=== PATIENT | male | born 1995 | race Caucasian/White ===

== ENCOUNTER 2019-09-28 22:00 | Emergency (ER) | payer BC ==
[2019-09-28 22:15] VITALS: BP 157/104; PULSE 85
--- NOTE | 2019-09-28 23:37 | EDM.PDOC ---
ED HPI GENERAL MEDICAL PROBLEM - General Chief Complaint: Genitourinary Problem Stated Complaint: blood in urine recent heart surgery Time Seen by Provider: 09/28/19 23:31 - History of Present Illness INITIAL COMMENTS - FREE TEXT/NARRATIVE: 24-year-old male presents the emergency room with blood in his urine Patient had 2 episodes of this prior to coming in this evening. He denies any pain frequency or urgency with urination. The patient thinks he is taking an aspirin a day but is not sure of the strength he just says is a regular aspirin. The patient recently had what sounds like a cardioversion done in [place] but he cannot recall the context of this or any details. - Related Data Allergies Allergy/AdvReac Type Severity Reaction Status Date / Time hydrocodone Allergy Rash Verified 05/11/19 16:45 CDT reyes water Allergy Swollen Uncoded 05/11/19 16:45 CDT Eyes Past Medical History - Past Health History Medical/Surgical History: Denies Medical/Surgical History HEENT History: Reports: None Cardiovascular History: Reports: Arrhythmia Respiratory History: Reports: None Gastrointestinal History: Reports: None Genitourinary History: Reports: None Musculoskeletal History: Reports: None Neurological History: Reports: Other (See Below) Other Neuro History: subdural hematoma 05/07/19 Psychiatric History: Reports: None Endocrine/Metabolic History: Reports: None Hematologic History: Reports: None Immunologic History: Reports: None Oncologic (Cancer) History: Reports: None Dermatologic History: Reports: None - Infectious Disease History Infectious Disease History: Reports: None - Past Surgical History Head Surgeries/Procedures: Reports: None Musculoskeletal Surgical History: Reports: Other (See Below) Other Musculoskeletal Surgeries/Procedures:: jaw surgery Social & Family History - Family History Family Medical History: Noncontributory - Tobacco Use Smoking Status *Q: Current Some Day Smoker Years of Tobacco use: 10 Packs/Tins Daily: 1 - Caffeine Use Caffeine Use: Reports: Coffee, Energy Drinks, Soda - Recreational Drug Use Recreational Drug Use: No - Living Situation & Occupation Living situation: Reports: with Family ED ROS GENERAL - Review of Systems Review Of Systems: See Below Constitutional: Reports: No Symptoms Respiratory: Reports: No Symptoms Cardiovascular: Reports: No Symptoms GI/Abdominal: Denies: Abdominal Pain, Constipation, Diarrhea, Nausea, Vomiting : Reports: Hematuria. Denies: Discharge, Dysuria, Flank Pain, Frequency ED EXAM, GI/ABD - Physical Exam Exam: See Below Exam Limited By: No Limitations General Appearance: Alert, No Apparent Distress Respiratory/Chest: No Respiratory Distress, Lungs Clear, Normal Breath Sounds Cardiovascular: Regular Rate, Rhythm, No Edema, No Murmur GI/Abdominal Exam: Normal Bowel Sounds, Soft, Non-Tender Back Exam: Normal Inspection. No: CVA Tenderness (L), CVA Tenderness (R) Course - Vital Signs Last Recorded V/S: Last Vital Signs Temp 37.4 C 09/28/19 22:11 Pulse 85 09/28/19 22:11 Resp 16 09/28/19 22:11 BP 157/104 H 09/28/19 22:11 Pulse Ox 98 09/28/19 22:11 - Re-Assessments/Exams Free Text/Narrative Re-Assessment/Exam: 09/29/19 07:40 While trying to obtain his old records from [place] the patient left the department he was ready to go home Departure - Departure Time of Disposition: 00:55 Disposition: Eloped 07 Clinical Impression: Hematuria - Discharge Information Referrals: PCP,None [Primary Care Provider] - Forms: ED Department Discharge Sepsis Event Note - Evaluation Sepsis Screening Result: No Definite Risk - Focused Exam Vital Signs: Vital Signs Temp Pulse Resp BP Pulse Ox 09/28/19 22:11 37.4 C 85 16 157/104 H 98 Date Exam was Performed: 09/29/19 Time Exam was Performed: 07:38
== END 2019-09-29 00:04 | disposition left against medical advice (07) ==
LOC: JD.ED 22:00
DX: R31.9 Hematuria, unspecified (principal); F17.210 Nicotine dependence, cigarettes, uncomplicated; Z88.5 Allergy status to narcotic agent
CPT/HCPCS: 99281; 99283

== ENCOUNTER 2019-12-02 08:32 | Emergency (ER) | payer BC ==
[2019-12-02 08:43] VITALS: BP 112/78; PULSE 88
[2019-12-02] MEDS ORDERED: Acetaminophen/HYDROcodone 325-5 MG Tab PO ONE (09:29)
--- NOTE | 2019-12-02 09:40 | CR ---
Right wrist: 3 views of the right wrist were obtained. Slightly abnormal alignment of 1 or 2 metacarpal bones is again seen posteriorly in relation of the carpal bones. Displaced fracture is noted within the posterior wrist. No additional abnormality is seen other than soft tissue swelling. Impression: 1. Fracture and probable dislocation as noted above. 2. CT study would be helpful for more complete evaluation. Diagnostic code #3 This report was dictated in MDT
--- NOTE | 2019-12-02 09:40 | CR ---
Right hand: 2 views of the right hand were obtained. Comparison: No prior hand exam. Abnormal alignment of 1 or 2 metacarpal bases in relation of the carpal bones is seen suggesting posterior displacement. Fracture fragment is seen off the posterior wrist. Soft tissue swelling is identified. Impression: 1. Probable dislocation of 1 or 2 metacarpal bases posteriorly in relation to the carpal bones. 2. Fracture off the posterior wrist. 3. Soft tissue swelling. Note: CT study would be helpful to further define. Diagnostic code #3 This report was dictated in MDT
--- NOTE | 2019-12-02 09:45 | EDM.PDOC ---
ED HPI GENERAL MEDICAL PROBLEM - General Chief Complaint: Upper Extremity Injury/Pain Stated Complaint: RT HAND INJURY Time Seen by Provider: 12/02/19 09:15 Source of Information: Reports: Patient, RN Notes Reviewed - History of Present Illness INITIAL COMMENTS - FREE TEXT/NARRATIVE: 24 yr old male suffered injury to R hand last evening. He was working under a car, a deanna slipped and frame or part of car came down on R hand pinching R hand between frame of car and a tire lying underneath the car. He did not have much pain last evening after it happened but now having quite severe pain, more swelling and does have some paresthesias of the L 4th and 5th fingers. Right Hand Pain Score (Numeric/FACES): 10 - Related Data Allergies Allergy/AdvReac Type Severity Reaction Status Date / Time No Known Allergies Allergy Verified 12/02/19 08:43 Home Meds: Home Meds Acetaminophen/HYDROcodone [Argenta 325-5 MG] 1 tab PO Q6H PRN #10 tablet 12/02/19 [Rx] Acetaminophen/HYDROcodone [Argenta 325-5 MG] 1 tab PO Q6H PRN #10 tablet 12/02/19 [Rx] Past Medical History - Past Health History Medical/Surgical History: Denies Medical/Surgical History HEENT History: Reports: None Cardiovascular History: Reports: Arrhythmia Respiratory History: Reports: None Gastrointestinal History: Reports: None Genitourinary History: Reports: None Musculoskeletal History: Reports: None Neurological History: Reports: Other (See Below) Other Neuro History: subdural hematoma 05/07/19 Psychiatric History: Reports: None Endocrine/Metabolic History: Reports: None Hematologic History: Reports: None Immunologic History: Reports: None Oncologic (Cancer) History: Reports: None Dermatologic History: Reports: None - Infectious Disease History Infectious Disease History: Reports: None - Past Surgical History Head Surgeries/Procedures: Reports: None Musculoskeletal Surgical History: Reports: Other (See Below) Other Musculoskeletal Surgeries/Procedures:: jaw surgery Social & Family History - Family History Family Medical History: Noncontributory - Caffeine Use Caffeine Use: Reports: Coffee, Energy Drinks, Soda - Living Situation & Occupation Living situation: Reports: with Family Review of Systems - Review of Systems Review Of Systems: See Below Constitutional: Reports: No Symptoms Mouth/Throat: Reports: No Symptoms Respiratory: Reports: No Symptoms Cardiovascular: Reports: No Symptoms Musculoskeletal: Reports: Joint Pain (R hand and wrist pain) Skin: Reports: No Symptoms Neurological: Reports: Numbness (R 4th and 5th fingers, no weakness) ED EXAM, GENERAL - Physical Exam Exam: See Below General Appearance: Alert, Mild Distress Eye Exam: Bilateral Eye: PERRL Head: Atraumatic Neck: Supple Respiratory/Chest: No Respiratory Distress Extremities: Other (moderate tenderness, swelling distal ulnar wrist and hand with mild swelling. mild tenderness and swelling dorsal hand) Skin Exam: Warm, Dry, Normal Color ED TRAUMA EXTREMITY PROCEDURES - Splinting Right Upper Extremity Splint Site: R hand, wrist, forearm Pre-Procedure NV Status: Abnormal (mildly decreased sensation to touch R 4th , 5th fingers) Splint Material: Fiberglass Splint Design: Volar Applied & Form Fitted By: Provider Course - Vital Signs Last Recorded V/S: Last Vital Signs Temp 98.6 F 12/02/19 08:40 Pulse 88 12/02/19 08:40 Resp 16 12/02/19 08:40 BP 112/78 12/02/19 08:40 Pulse Ox 100 12/02/19 08:40 - Orders/Labs/Meds Meds: Medications Discontinued Medications Generic Name Dose Route Start Last Admin Trade Name Freq PRN Reason Stop Dose Admin Hydrocodone Bitart/Acetaminophen 1 tab 12/02/19 09:29 12/02/19 09:35 Argenta 325-5 Mg PO 12/02/19 09:30 1 tab ONETIME ONE Administration - Re-Assessments/Exams Free Text/Narrative Re-Assessment/Exam: 12/02/19 10:24 X ray of hand and wrist shows fx of wrist, Radiologist is concerned for probabable displacement of metacarpal bones in relationship to carpal, see Radiology report for details. I did push Xrays to [facility] and did discuss with Dr Brennan reconciliation clerk for [facility]. He feels it will be safe for patient to wait to see Dr Hernández tomorrow if possible, If unable to see Dr Edgar Brennan can see him at the [facility] Tuesday. fiberglass splint applied. Departure - Departure Time of Disposition: 09:37 Disposition: Home, Self-Care 01 Condition: Fair Clinical Impression: Fractured hand Contusion, hand Qualifiers: Encounter type: initial encounter Laterality: right Qualified Code(s): S60.221A - Contusion of right hand, initial encounter - Discharge Information Prescriptions: Acetaminophen/HYDROcodone [Argenta 325-5 MG] 1 tab PO Q6H PRN #10 tablet PRN Reason: Pain Acetaminophen/HYDROcodone [Argenta 325-5 MG] 1 tab PO Q6H PRN #10 tablet PRN Reason: Pain Instructions: Closed Reduction for Wrist or Forearm, Care After, Hand Contusion , [id number] Referrals: PCP,None [Primary Care Provider] - Forms: ED Department Discharge Additional Instructions: Orthoglass splint R hand. Ice packs and elevation for swelling. Tylenol and ibuprofen as needed for pain, or hydrocodone if needed for severe pain. Prescription for hydrocodone can be filled at [facility]. They are open from 12 noon to [address] Hernández tomorrow at [facility] here in this building tomorrow or Tuesday if possible , call [phone] imediately tomorrow morning for appointment. If unable to see Dr Edgar Brennan can see you Tuesday at the [facility] Tuesday. Extreme elevation today, tomorrow until you see Ortho, Intermitent Ice packs as well to get the swelling down. Sepsis Event Note - Evaluation Sepsis Screening Result: No Definite Risk - Focused Exam Vital Signs: Vital Signs Temp Pulse Resp BP Pulse Ox 12/02/19 08:40 98.6 F 88 16 112/78 100 Date Exam was Performed: 12/02/19 Time Exam was Performed: 12:42
== END 2019-12-02 11:19 | disposition home or self-care (01) ==
LOC: JD.ED 08:32
DX: S62.101A Fracture of unspecified carpal bone, right wrist, initial encounter for closed fracture (principal); W20.8XXA Other cause of strike by thrown, projected or falling object, initial encounter
CPT/HCPCS: 29125; 73110; 73120; 99283; A9270

== ENCOUNTER 2020-12-06 23:27 | Emergency (ER) | payer BC ==
[2020-12-06] MEDS ORDERED: Lidocaine 1% 20 ML MDV INJECT ONE (23:47)
[2020-12-06 23:49] VITALS: BP 155/115; PULSE 98
[2020-12-07] MEDS: Lidocaine 1% 10 ML MDV ONE
--- NOTE | 2020-12-07 00:11 | EDM.PDOC ---
ED HPI GENERAL MEDICAL PROBLEM - General Chief Complaint: Laceration Stated Complaint: RT FOREARM LAC Time Seen by Provider: 12/06/20 23:35 Source of Information: Reports: Patient History Limitations: Reports: No Limitations - History of Present Illness INITIAL COMMENTS - FREE TEXT/NARRATIVE: This is a 25-year-old male. He was using a flat head screwdriver to try to pry apart on the engine loose when it slipped and his forearm slammed against a piece of metal and cut his forearm. He is up-to-date with his tetanus. He denies any other acute symptoms. 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 [Unable to Verify Home Med List] 12/06/20 [History] Past Medical History - Past Health History Medical/Surgical History: Denies Medical/Surgical History HEENT History: Reports: None Cardiovascular History: Reports: Arrhythmia Respiratory History: Reports: None Gastrointestinal History: Reports: None Genitourinary History: Reports: None Musculoskeletal History: Reports: None Neurological History: Reports: Other (See Below) Other Neuro History: subdural hematoma 05/07/19 Psychiatric History: Reports: Addiction Endocrine/Metabolic History: Reports: None Hematologic History: Reports: None Immunologic History: Reports: None Oncologic (Cancer) History: Reports: None Dermatologic History: Reports: None - Infectious Disease History Infectious Disease History: Reports: None - Past Surgical History Head Surgeries/Procedures: Reports: None HEENT Surgical History: Reports: Other (See Below) Other HEENT Surgeries/Procedures: fx jaw wired shut Musculoskeletal Surgical History: Reports: Other (See Below) Other Musculoskeletal Surgeries/Procedures:: jaw surgery. right hand surgery Social & Family History - Family History Family Medical History: No Pertinent Family History - Tobacco Use Tobacco Use Status *Q: Never Tobacco User Second Hand Smoke Exposure: No - Caffeine Use Caffeine Use: Reports: None - Alcohol Use Days Per Week of Alcohol Use: 2 Number of Drinks Per Day: 2 Total Drinks Per Week: 4 - Recreational Drug Use Recreational Drug Use: No - Living Situation & Occupation Living situation: Reports: with Family ED ROS GENERAL - Review of Systems Review Of Systems: See Below Constitutional: Denies: Fever, Chills HEENT: Reports: No Symptoms Respiratory: Reports: No Symptoms Cardiovascular: Reports: No Symptoms Endocrine: Reports: No Symptoms GI/Abdominal: Reports: No Symptoms : Reports: No Symptoms Musculoskeletal: Reports: No Symptoms Skin: Reports: Other (As per HPI) Neurological: Reports: No Symptoms Psychiatric: Reports: No Symptoms ED EXAM, SKIN/RASH Exam: See Below Exam Limited By: No Limitations General Appearance: Alert, WD/WN, No Apparent Distress Eye Exam: Bilateral Eye: Normal Inspection Ears: Normal External Exam Nose: Normal Inspection Throat/Mouth: Normal Lips, Normal Voice, No Airway Compromise Head: Normocephalic Neck: Supple Respiratory/Chest: No Respiratory Distress Back Exam: Full Range of Motion Extremities: Normal Range of Motion, Other (On his right forearm on the dorsal surface just distal to the elbow there is a half osage laceration that goes through the entire skin and to this subcutaneous tissue but does not strike the muscle. Neurovascular is intact completely distal to that in his fingers. Full movement of his fingers.) Neurological: Alert, Oriented Psychiatric: Normal Affect, Normal Mood Skin: Warm, Dry Location, Skin: Upper Extremity, Right ED SKIN PROCEDURES - Laceration/Wound Repair Right Upper Appearance: Subcutaneous, Mildly Contaminated Distal NVT: Neuro & Vascular Intact, No Tendon Injury Anesthetic Type: Local Local Anesthesia - Lidocaine (Xylocaine): 1% Plain Local Anesthetic Volume: Other (12 cc) Skin Prep: Chlorhexidine (Hibiciens), Saline Saline Irrigation (cc's): 250 Exploration/Debridement/Repair: Wound Explored, Explored to Base Closed with: Sutures Lac/Wound length In cm: 6 Suture Size: 4-0 # of Sutures: 5 Drain Placement: No Sterile Dressing Applied: Nurse Tetanus Status Addressed: Yes Complications: No Course - Vital Signs Last Recorded V/S: Last Vital Signs Temp 97.9 F 12/06/20 23:45 Pulse 98 12/06/20 23:45 Resp 18 12/06/20 23:45 BP 155/115 H 12/06/20 23:45 Pulse Ox 96 12/06/20 23:45 - Orders/Labs/Meds Meds: Medications Discontinued Medications Generic Name Dose Route Start Last Admin Trade Name Freq PRN Reason Stop Dose Admin Lidocaine HCl 20 ml 12/06/20 23:47 12/07/20 00:01 Lidocaine 1% 20 Ml Mdv INJECT 12/06/20 23:48 Not Given ONETIME ONE Lidocaine HCl Confirm 12/06/20 23:49 12/07/20 00:00 Lidocaine 1% 10 Ml Mdv Administered 12/06/20 23:50 20 ml Dose Administration 20 ml .ROUTE .STK-MED ONE Departure - Departure Time of Disposition: 00:09 Disposition: Home, Self-Care 01 Condition: Good Clinical Impression: Laceration of right forearm without complication Qualifiers: Encounter type: initial encounter Qualified Code(s): S51.811A - Laceration without foreign body of right forearm, initial encounter - Discharge Information *PRESCRIPTION DRUG MONITORING PROGRAM REVIEWED*: Not Applicable *COPY OF PRESCRIPTION DRUG MONITORING REPORT IN PATIENT DEISY: Not Applicable Instructions: Laceration Care, Adult, [id number] Referrals: PCP,None [Primary Care Provider] - Forms: ED Department Discharge Additional Instructions: Keep the area clean and dry and watch for infection, if there is any sign of increased swelling redness or yellow drainage be rechecked immediately, take some Tylenol or ibuprofen as needed for the soreness, you need the sutures removed in 7 to 10 days and you can come back to the ER or go to the walk-in clinic to have them removed, return to the ER if needed. Sepsis Event Note (ED) - Evaluation Sepsis Screening Result: No Definite Risk - Focused Exam Vital Signs: Vital Signs Temp Pulse Resp BP Pulse Ox 12/06/20 23:45 97.9 F 98 18 155/115 H 96
== END 2020-12-07 00:10 | disposition home or self-care (01) ==
LOC: JD.ED 23:27
DX: S51.811A Laceration without foreign body of right forearm, initial encounter (principal); W27.0XXA Contact with workbench tool, initial encounter
CPT/HCPCS: 12002; 99282; 99282-25

== ENCOUNTER 2020-12-07 11:51 | Emergency (ER) | payer BC ==
[2020-12-07 12:02] VITALS: BP 158/114; PULSE 81
--- NOTE | 2020-12-07 12:10 | EDM.PDOC ---
ED HPI GENERAL MEDICAL PROBLEM - General Chief Complaint: Wound Recheck Stated Complaint: RT FOREARM SWOLLEN Time Seen by Provider: 12/07/20 11:58 Source of Information: Reports: Patient History Limitations: Reports: No Limitations - History of Present Illness INITIAL COMMENTS - FREE TEXT/NARRATIVE: 25-year-old male presents to the ED for evaluation of sudden onset of worsening pain at puncture wound site to the volar ulnar aspect of his right forearm. Patient inadvertently stabbed himself with a large flat head screwdriver last night while working on an automobile. He suffered approximately 3 to 4 cm laceration proximal volar aspect of his right forearm. There is no doubt that the puncture wound enters the skin and into the underlying forearm muscles.. He developed sudden onset of increased pain around the wound today and became concerned which brought him to the ED. Exam reveals that the wound has been sutured closed and appears to be healing satisfactorily with no leakage of blood. There is fluctuation proximal to the wound suggesting blood under the skin and likely going to develop a bruise to the elbow in this area. Injury is likely to underlying muscle and perhaps nerve. Treatment is conservative with Motrin 600 mg every 6 hours as needed for pain relief. I am going to be put the patient on doxycycline 100 mg twice daily for the next 10 days to prevent secondary wound infection from occurring since there is a hematoma palpable underneath the skin. He is to daily cleanse the wound with soap and water and apply topical antibiotic such as bacitracin or Polysporin. Sutures out in 11 to 12 days time Onset: Sudden Onset Date: 12/06/20 Duration: Hour(s):, Constant, Getting Worse Location: Reports: Upper Extremity, Left (Puncture wound to the volar ulnar aspect of proximal right forearm) Quality: Reports: Ache, Throbbing Severity: Moderate Improves with: Reports: None Worsens with: Reports: None Context: Reports: Trauma (Flat screwdriver last evening.). 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 (see below) Right Lower Arm Pain Score (Numeric/FACES): 10 - Related Data Allergies Allergy/AdvReac Type Severity Reaction Status Date / Time No Known Allergies Allergy Verified 12/07/20 12:02 Home Meds: Home Meds Doxycycline [Vibra-Tabs] 100 mg PO Q12HR #20 tab 12/07/20 [Rx] Past Medical History - Past Health History Medical/Surgical History: Denies Medical/Surgical History HEENT History: Reports: None Cardiovascular History: Reports: Arrhythmia Respiratory History: Reports: None Gastrointestinal History: Reports: None Genitourinary History: Reports: None Musculoskeletal History: Reports: None Neurological History: Reports: Other (See Below) Other Neuro History: subdural hematoma 05/07/19 Psychiatric History: Reports: Addiction Endocrine/Metabolic History: Reports: None Hematologic History: Reports: None Immunologic History: Reports: None Oncologic (Cancer) History: Reports: None Dermatologic History: Reports: None - Infectious Disease History Infectious Disease History: Reports: None - Past Surgical History Head Surgeries/Procedures: Reports: None HEENT Surgical History: Reports: Other (See Below) Other HEENT Surgeries/Procedures: fx jaw wired shut Musculoskeletal Surgical History: Reports: Other (See Below) Other Musculoskeletal Surgeries/Procedures:: jaw surgery. right hand surgery Social & Family History - Family History Family Medical History: No Pertinent Family History - Tobacco Use Tobacco Use Status *Q: Current Every Day Tobacco User Years of Tobacco use: 8 Packs/Tins Daily: 1 - Caffeine Use Caffeine Use: Reports: None - Recreational Drug Use Recreational Drug Use: No - Living Situation & Occupation Living situation: Reports: with Family ED ROS GENERAL - Review of Systems Review Of Systems: See Below Constitutional: Denies: Fever, Chills, Malaise, Weakness, Fatigue HEENT: Reports: No Symptoms Respiratory: Reports: No Symptoms Cardiovascular: Reports: No Symptoms Endocrine: Reports: No Symptoms GI/Abdominal: Reports: No Symptoms : Reports: No Symptoms Musculoskeletal: Reports: No Symptoms Skin: Reports: No Symptoms Neurological: Reports: No Symptoms Psychiatric: Reports: No Symptoms Hematologic/Lymphatic: Reports: No Symptoms Immunologic: Reports: No Symptoms ED EXAM, SKIN/RASH Exam: See Below Exam Limited By: No Limitations General Appearance: Alert, WD/WN, Mild Distress, Other (Temperature is 36.7. Heart rate 81 and sinus respiratory 16 with O2 sats of 97% room air BP slightly elevated 158 114.) Eye Exam: Bilateral Eye: Normal Inspection (No scleral icterus or blepharal pallor.), PERRL Extremities: Other (Examination essentially limited to the wound proximal volar ulnar aspect of his right forearm. The wound has been sutured. There is fluctuation proximal to the wound compatible with blood accumulation or hematoma under the skin. I cannot explain why he developed sudden increased pain in the area) Neurological: Alert, Oriented, CN II-XII Intact, Normal Cognition Psychiatric: Normal Affect, Normal Mood Skin: Warm, Dry, Intact, Normal Color, No Rash Course - Vital Signs Last Recorded V/S: Last Vital Signs Temp 36.7 C 12/07/20 12:01 Pulse 81 12/07/20 12:01 Resp 16 12/07/20 12:01 BP 158/114 H 12/07/20 12:01 Pulse Ox 97 12/07/20 12:01 - Radiology Interpretation Free Text/Narrative:: 25-year-old male presents to the ED for evaluation of his wound to the volar ulnar aspect of his proximal right forearm. He accidentally stabbed himself last evening with a large flat blade screwdriver. Has approximately a 3 cm wound that had to be sutured under local anesthetic. There is no doubt that the wound was quite deep and traveled into the muscles of the forearm. I cannot explain why he developed sudden onset of worsening pain this morning. I suspect either nerve root injury or further bleeding into the underlying volar forearm muscles. Will be treated conservatively. Antibiotic ointment applied to the wound and it will be redressed. Advised Motrin 600 mg every 6 hours to reduce pain and inflammation. The wound appears to penetrate is good 4 to 6 cm into his volar forearm muscles. I am going to place him on doxycycline 100 mg twice daily for the next 10 days to prevent secondary wound infection. His tetanus toxoid is up-to-date. Patient reassured in this regard. Departure - Departure Time of Disposition: 12:13 Disposition: Home, Self-Care 01 Condition: Fair Clinical Impression: Puncture wound of right forearm Qualifiers: Encounter type: initial encounter Qualified Code(s): S51.831A - Puncture wound without foreign body of right forearm, initial encounter Laceration of right forearm without complication Qualifiers: Encounter type: initial encounter Qualified Code(s): S51.811A - Laceration without foreign body of right forearm, initial encounter - Discharge Information *PRESCRIPTION DRUG MONITORING PROGRAM REVIEWED*: Not Applicable *COPY OF PRESCRIPTION DRUG MONITORING REPORT IN PATIENT DEISY: Not Applicable Prescriptions: Doxycycline [Vibra-Tabs] 100 mg PO Q12HR #20 tab Referrals: PCP,None [Primary Care Provider] - Forms: ED Department Discharge Additional Instructions: Evaluation in the emergency room today in regards to wound recheck ulnar/volar aspect of your right forearm. You inadvertently stabbed yourself with a flat head screwdriver with resultant laceration that required suture repair. There is no doubt that injury to the underlying muscles occurred from the puncture wound as well. Sudden onset of worsening pain in the area today likely either due to a nerve waking up from injury or some bleeding in the underlying muscle causing acute pain. Examination reveals fluctuation around the wound towards the elbow suggesting blood under the skin. It is likely going to turn all black and blue over the next week as the blood comes to the surface. No abnormalities of the suture site identified. Continue Motrin 600 mg every 6 hours as needed to relieve pain and inflammation. Antibiotic is to be doxycycline 100 mg tablets. Take 2 with first dose with some food and then 1 tablet twice daily for the next 10 days to prevent secondary wound infection. I would suggest leaving the sutures in for about 12 days to allow this wound to heal. Showering is okay i.e. Glancy water will not hurt the wound. Then apply topical antibiotics such as bacitracin or Polysporin once daily and cover to keep clean Sepsis Event Note (ED) - Evaluation Sepsis Screening Result: No Definite Risk - Focused Exam Vital Signs: Vital Signs Temp Pulse Resp BP Pulse Ox 12/07/20 12:01 36.7 C 81 16 158/114 H 97
== END 2020-12-07 12:24 | disposition home or self-care (01) ==
LOC: JD.ED 11:51
DX: S51.831A Puncture wound without foreign body of right forearm, initial encounter (principal); Z72.0 Tobacco use; W22.8XXA Striking against or struck by other objects, initial encounter
CPT/HCPCS: 99282; 99283

== ENCOUNTER 2021-09-20 01:14 | Emergency (ER) | payer BC ==
[2021-09-20 01:36] VITALS: BP 155/110; PULSE 101
== END 2021-09-20 02:44 ==
LOC: JD.ED 01:14
DX: F10.129 Alcohol abuse with intoxication, unspecified (principal); I10 Essential (primary) hypertension; F17.210 Nicotine dependence, cigarettes, uncomplicated; Z79.82 Long term (current) use of aspirin; Z79.899 Other long term (current) drug therapy
CPT/HCPCS: 99283

== ENCOUNTER 2021-09-20 11:26 | Emergency (ER) | payer BC ==
[2021-09-20] MEDS ORDERED: Sodium Chloride 0.9% 10 ML Syringe FLUSH PRN (11:28)
[2021-09-20] MEDS ORDERED: Ondansetron 4 MG/2 ML SDV IVPUSH ONE (11:28)
[2021-09-20] MEDS ORDERED: LORazepam 2 MG/ML SDV IVPUSH ONE (11:29)
[2021-09-20] MEDS ORDERED: Sodium Chloride 0.9% 1,000 ML IV SCH (11:30)
[2021-09-20 11:35] VITALS: BP 158/109; PULSE 97
[2021-09-20] MEDS ORDERED: LORazepam 2 MG/ML SDV ONE (12:18)
[2021-09-20] MEDS ORDERED: cloNIDine 0.1 MG Tab PO ONE (13:33)
== END 2021-09-20 14:20 | disposition home or self-care (01) ==
LOC: JD.ED 11:26
DX: F10.230 Alcohol dependence with withdrawal, uncomplicated (principal); I10 Essential (primary) hypertension; Y90.0 Blood alcohol level of less than 20 mg/100 ml; Z72.0 Tobacco use; Z79.899 Other long term (current) drug therapy; Z20.822 Contact with and (suspected) exposure to COVID-19
CPT/HCPCS: 36415; 71045; 80053; 80307; 85025; 86140; 87635; 96374; 96375; 99285; J2060; J2405; J7030; 99284; U0002

== ENCOUNTER 2021-12-04 21:21 | Emergency (ER) | payer BC ==
[2021-12-04 21:31] VITALS: BP 172/112; PULSE 117
[2021-12-04] MEDS ORDERED: Alum Hydrox/Mag Hydrox/Simeth 30 ML, Lidocaine 2% 15 ML PO STA ×2 (21:56)
== END 2021-12-04 23:48 | disposition home or self-care (01) ==
LOC: JD.ED 21:21
DX: R10.13 Epigastric pain (principal); F10.229 Alcohol dependence with intoxication, unspecified; I10 Essential (primary) hypertension; Z79.82 Long term (current) use of aspirin; Z72.0 Tobacco use; Y90.5 Blood alcohol level of 100-119 mg/100 ml
CPT/HCPCS: 36415; 71046; 80053; 80306; 80307; 83690; 83735; 84484; 85025; 93005; 99285; A9270; 93010; 99284

== ENCOUNTER 2021-12-08 15:33 | Emergency (ER) | payer BC ==
[2021-12-08] MEDS ORDERED: ceFAZolin 2 GM in Premix Bag 1 BAG IV ONE (15:39)
[2021-12-08] MEDS ORDERED: Sodium Chloride 0.9% 10 ML Syringe FLUSH PRN (15:39)
[2021-12-08] MEDS ORDERED: HYDROmorphone 1 MG/ML Syringe IVPUSH ONE (15:40)
[2021-12-08 15:48] VITALS: PULSE 109
[2021-12-08] MEDS ORDERED: Sodium Chloride 0.9% 1,000 ML IV ONE (15:54)
[2021-12-08] MEDS: ceFAZolin 2 GM in Sodium Chloride 0.9% 50 ML IV SCH ×2 (16:18→16:35)
[2021-12-08] MEDS ORDERED: Lidocaine 1% 10 ML MDV INJECT ONE (16:23)
== END 2021-12-08 18:20 | disposition home or self-care (01) ==
LOC: JD.ED 15:33
DX: S68.124A Partial traumatic metacarpophalangeal amputation of right ring finger, initial encounter (principal); I10 Essential (primary) hypertension; Z79.82 Long term (current) use of aspirin; W22.09XA Striking against other stationary object, initial encounter
CPT/HCPCS: 73130; 96365; 96375; 99283; J0690; J1170; J3490; J7030

== ENCOUNTER 2022-02-26 22:44 | Emergency (ER) | payer BC ==
[2022-02-27 00:10] VITALS: BP 160/120; PULSE 83
== END 2022-02-27 00:35 ==
LOC: JD.ED 22:44
DX: F10.920 Alcohol use, unspecified with intoxication, uncomplicated (principal); I10 Essential (primary) hypertension; Z79.899 Other long term (current) drug therapy
CPT/HCPCS: 99284

== ENCOUNTER 2022-02-28 20:41 | Emergency (ER) | payer BC ==
[2022-02-28] MEDS ORDERED: Lactated Ringers 1,000 ML IV ONE (21:08)
[2022-02-28] MEDS ORDERED: Ketorolac 15 MG/ML SDV IVPUSH ONE (21:08)
[2022-02-28 21:16] VITALS: BP 146/116; PULSE 100
== END 2022-02-28 21:20 | disposition left against medical advice (07) ==
LOC: JD.ED 20:41
DX: M25.571 Pain in right ankle and joints of right foot (principal); I10 Essential (primary) hypertension; Z79.899 Other long term (current) drug therapy
CPT/HCPCS: 99283

== ENCOUNTER 2022-08-20 22:12 | Emergency (ER) | payer SELFPAY ==
[2022-08-20 22:21] VITALS: BP 135/86; PULSE 104
== END 2022-08-20 23:16 ==
LOC: JD.ED 22:12
DX: Z02.89 Encounter for other administrative examinations (principal); I10 Essential (primary) hypertension; F17.210 Nicotine dependence, cigarettes, uncomplicated
CPT/HCPCS: 99283

== ENCOUNTER 2022-08-22 10:04 | Emergency (ER) | payer SELFPAY ==
[2022-08-22] MEDS ORDERED: LORazepam 2 MG/ML SDV ONE (10:12)
[2022-08-22] MEDS ORDERED: LORazepam 2 MG/ML SDV IVPUSH ONE ×3 (10:13→12:21)
[2022-08-22] MEDS ORDERED: Sodium Chloride 0.9% 10 ML Syringe FLUSH PRN (10:13)
[2022-08-22] MEDS ORDERED: Sodium Chloride 0.9% 1,000 ML IV SCH (10:15)
[2022-08-22 12:39] VITALS: BP 148/87; PULSE 84
== END 2022-08-22 12:35 | disposition other institution (70) ==
LOC: JD.ED 10:04
DX: F41.9 Anxiety disorder, unspecified (principal); F10.230 Alcohol dependence with withdrawal, uncomplicated; I10 Essential (primary) hypertension; Z79.899 Other long term (current) drug therapy
CPT/HCPCS: 36415; 70450; 80053; 80307; 83735; 85025; 96361; 96374; 96376; 99285; J2060; J3490; J7030

== ENCOUNTER 2022-08-23 20:20 | Emergency (ER) | payer SELFPAY ==
[2022-08-23 20:39] VITALS: BP 153/109; PULSE 85
[2022-08-23] MEDS ORDERED: Sodium Chloride 0.9% 1,000 ML IV SCH (21:00)
[2022-08-23] MEDS ORDERED: LORazepam 2 MG/ML SDV IVPUSH ONE ×2 (21:00→22:30)
[2022-08-23] MEDS ORDERED: Sodium Chloride 0.9% 10 ML Syringe FLUSH PRN (21:01)
== END 2022-08-23 23:00 | disposition home or self-care (01) ==
LOC: JD.ED 20:20
DX: F10.230 Alcohol dependence with withdrawal, uncomplicated (principal); I10 Essential (primary) hypertension; Z79.899 Other long term (current) drug therapy
CPT/HCPCS: 36415; 80053; 85025; 96361; 96374; 96376; 99285-25; J2060; J3490; J7030